=== PATIENT | female | born 1975 ===

== ENCOUNTER 2017-08-02 10:00 | Inpatient (IN) | payer OTHER ==
[~2017-08-02] VITALS: Ht 160 cm; Wt 3.6 kg
[2017-08-02] MEDS ORDERED: PRENATABS RX T1 EACH PO (12:39)
[2017-08-02] MEDS ORDERED: TYLENOL325 MG PO (12:39)
[2017-08-07] MEDS ORDERED: IBUPROFEN400 MG PO (09:35)
[2017-08-07] MEDS ORDERED: PERCOCET 5-3251 EACH PO (09:35)
== END 2017-08-07 11:58 | DRG 766 ==
LOC: O/R 08-05 06:43 → OB/GYN 08-05 07:00
PROVIDERS: Obstetrics & Gynecology
PROC: 0UL70ZZ Occlusion of Bilateral Fallopian Tubes, Open Approach (ICD-10-PCS; 2017-08-05)
PROC: 4A1HXCZ Monitoring of Products of Conception, Cardiac Rate, External Approach (ICD-10-PCS; 2017-08-05)
PROC: 4A033R1 Measurement of Arterial Saturation, Peripheral, Percutaneous Approach (ICD-10-PCS; 2017-08-05)
PROC: 10D00Z1 Extraction of Products of Conception, Low, Open Approach (ICD-10-PCS; principal; 2017-08-05 07:00)
DX: O34.211 Maternal care for low transverse scar from previous cesarean delivery (principal); Z37.0 Single live birth; Z3A.39 39 weeks gestation of pregnancy; Z30.2 Encounter for sterilization